=== PATIENT | male | born 1980 ===

== ENCOUNTER 2023-04-24 06:13 | Emergency (ER) | payer MEDICARE ==
[2023-04-24] MEDS ORDERED: Ketorolac 30 MG/ML SDV IM ONE (06:32)
[2023-04-24] MEDS ORDERED: Acetaminophen 500 MG Tab PO ONE (06:33)
== END 2023-04-24 06:56 | disposition home or self-care (01) ==
LOC: DL.ED 06:13
DX: S93.402A Sprain of unspecified ligament of left ankle, initial encounter (principal); F17.210 Nicotine dependence, cigarettes, uncomplicated; X50.1XXA Overexertion from prolonged static or awkward postures, initial encounter; Y93.01 Activity, walking, marching and hiking
CPT/HCPCS: 96372; 99283; A9270; J1885; 99282